=== PATIENT | female | born 2000 | race Caucasian/White ===

== ENCOUNTER 2023-09-02 12:26 | Outpatient (CLI) | payer MEDICAID | END 2023-09-02 23:59 | disposition home or self-care (01) | LOC: RAD 12:26 | PROVIDERS: ATTEND Family Medicine | DX: O09.93 Supervision of high risk pregnancy, unspecified, third trimester (principal); Z3A.31 31 weeks gestation of pregnancy | CPT/HCPCS: 76805 ==

== ENCOUNTER → 2023-10-15 | Outpatient (CLI) | payer MEDICAID | END | disposition home or self-care (01) | LOC: RAD 12:34 | PROVIDERS: ATTEND Physician Assistant | DX: O09.93 Supervision of high risk pregnancy, unspecified, third trimester (principal); Z3A.37 37 weeks gestation of pregnancy | CPT/HCPCS: 76815 ==

== ENCOUNTER 2024-12-18 06:15 | Day surgery (SDC) | payer MEDICAID ==
[2024-12-11 15:13] LABS: MEAN PLATELET VOLUME 8.0 FL (7.4-10.4); PRE OP HEMATOCRIT 40.2 % (35.0-45.0); PRE OP HEMOGLOBIN 13.7 g/dL (12.0-16.0); PRE OP PLATELET COUNT 295 X10'3 (140-440); PRE OP WHITE BLOOD COUNT 8.9 10'3 (4.8-10.8); RED CELL DISTRIBUTION WIDTH 14.0 % (11.5-14.5)
[2024-12-11 15:28] LABS: CREATININE 0.76 MG/DL (0.40-0.90); PRE OP ALT 19 U/L (30-65); PRE OP ANION GAP 8 (8-16); PRE OP AST 12 U/L (10-37); PRE OP BILIRUB, TOTAL 0.3 MG/DL (0.0-1.0); PRE OP GLUCOSE 79 MG/DL (70-104); PRE OP POTASSIUM 4.0 MMOL/L (3.4-5.1); PRE OP SODIUM 144 MMOL/L (135-145); TOTAL CARBON DIOXIDE 27.6 MMOL/L (24-32); eGFR > 90 ML/MIN
[2024-12-11 15:51] LABS: HCG SERUM QL NEGATIVE
[~2024-12-18] VITALS: Ht 162.6 cm; Wt 64.0 kg
[2024-12-18] VITALS (8 sets, daily range): BP systolic 95–121; BP diastolic 63–91; PULSE 67–80; RESP 15–17; TEMP 97.9–98; O2SAT 98–99
[2024-12-18] MEDS: ceFAZolin 2gm/dext,iso 50mL 50 ML IV ONE (05:30)
[~2024-12-18 06:15] MED LIST: MULT-1249 PO; NORE0.3513 PO
[2024-12-18] MEDS ORDERED: LIDOcaine 2% (20mg/ml) 5ml vial ONE (06:43)
[2024-12-18] MEDS ORDERED: BUPIVAcaine/PF 2.5mg/ml (0.25%) 10ml vial ONE (06:43)
[2024-12-18] MEDS: ringers solution, lacted 1,000 ML IV SCH (06:46)
[2024-12-18] MEDS ORDERED: fentaNYL/PF 50MCG/1 ML 2ML syringe ONE (08:07)
[2024-12-18] MEDS ORDERED: midazolam 1 mg/ML 2ml injection ONE (08:11)
[2024-12-18] MEDS ORDERED: propofol inj 20 ML IV ONE (08:11)
[2024-12-18] MEDS: BUPIVAcaine/PF 2.5mg/ml (0.25%) 10ml vial IJ ONE (08:22)
[2024-12-18] MEDS ORDERED: labetalol 20mg/4ml (5mg/ml) syringe IV PRN (08:25)
[2024-12-18] MEDS ORDERED: ondansetron/PF 4mg/2ml inj IV PRN (08:25)
[2024-12-18] MEDS ORDERED: HYDROmorphone/PF 0.2 MG/ML SYRINGE IV PRN ×2 (08:25)
[2024-12-18] MEDS ORDERED: ringers solution, lacted 1,000 ML IV SCH (08:25)
[2024-12-18] MEDS ORDERED: morphine 4 MG/ML inj SYRINge IV PRN (08:25)
[2024-12-18] MEDS ORDERED: hydrALAZINE 20mg/ml inj. IV PRN (08:25)
[2024-12-18] MEDS ORDERED: acetaminophen 1,000mg/100ml IV 100 ML IV PRN (08:25)
--- NOTE | 2024-12-18 12:06 | OPERATIVE REPORT ---
Operative Report Providers to ~ Date of Procedure: Dec 18, 2024 Pre-Operative Diagnosis: Recurrent dorsal ganglion cyst right wrist Post-Operative Diagnosis SAME as PRE-Op Procedure Performed Excision of recurrent dorsal ganglion cyst right wrist Surgeon: Anthony Brito MD Neon Molder None Anesthesiologist: Leanne Aguirre Type of Anesthesia: Other (Local anesthetic with sedation) Findings: Estimated Blood Loss: The Specimen Removed: None Description of Procedure: The patient is a 24-year-old girl who several years ago had an excision of the dorsal ganglion cyst. It did well but it recurred recently. It is causing discomfort so surgery is indicated to improve function. Risks and benefits were discussed with the patient. Some of the risks include but are not limited to infection, bleeding, stiffness, recurrence, she agreed to proceed. Once in the operating room the arm was prepped and draped in usual manner. Time-out procedure was observed. Local anesthetic was infiltrated proximal to the planned incision site. The previous surgical scar was outlined and incised and dissection was taken down between the extensor tendons down to the wrist joint. There was a recurrent ganglion cyst originating from the mid carpal joint. It was clearly a ganglion cyst. It was traced around the periphery and excised at the origin. Deep cauterization was done to help prevent recurrence and stem any bleeding. Incision was then irrigated and closed with nylon suture. A sterile dressing was then applied and the tourniquet was released. The hand perfused well and she was taken to the recovery room in stable condition. ANTHONY BRITO Jr., MD Dec 18, 2024 12:06
== END 2024-12-18 09:25 | disposition home or self-care (01) ==
LOC: PAS 06:15
PROVIDERS: ATTEND Orthopaedic Surgery Hand Surgery
DX: M67.431 Ganglion, right wrist (principal); Z79.899 Other long term (current) drug therapy; Z98.890 Other specified postprocedural states
CPT/HCPCS: 25112; 36415; 80053; 82948; 84703; 85025; J2003; J2250; J2704; J3010; J3490; J7030; J7120; Z7506; Z7512; A4215; A4618; A6449; A7000